=== PATIENT | male | born 1960 | race Caucasian/White ===

== ENCOUNTER → 2019-08-31 14:15 | Outpatient (CLI) | payer BC, SELFPAY ==
--- NOTE | ~2019-08-31 | XR_ITS ---
XR chest 2V DATE: 08/31/2019 14:44 INDICATION: Cough, fever, bilateral lower chest pain for 3 days TECHNIQUE: PA and lateral views COMPARISON: None FINDINGS: Normal heart size. No hilar or mediastinal enlargement. There is discoid atelectasis or s carring at the lung bases; otherwise no pulmonary infiltrate or consolidation, pulmonary vascular con gestion, pleural effusion or pneumothorax. Thoracic and lumbar scoliosis. Osteopenia. IMPRESSION: Mild discoid scarring and/or atelectasis; otherwise no active cardiopulmonary disease Reviewed, dictated and finalized at location B. NED GLASS GLAZIER HELPER IMPRESSION: Mild discoid scarring and/or atelectasis; otherwise no active cardi opulmonary disease
== END ==
PROVIDERS: PCP Family Medicine; Visit Provider Physician Assistant
DX: R05 Cough (principal); R07.9 Chest pain, unspecified; R50.9 Fever, unspecified; R91.8 Other nonspecific abnormal finding of lung field
CPT/HCPCS: 71046

== ENCOUNTER 2019-10-13 11:05 | Outpatient (CLI) | payer BC, SELFPAY ==
--- NOTE | 2019-10-13 11:23 | ECG_ITS ---
Measurements Intervals [place] Rate: 68 P: 53 SC: 196 QRS: 17 QRSD: 97 T: 41 QT: 378 QTc: 402 Interpretive Statements SINUS RHYTHM INCOMPLETE RIGHT BUNDLE BRANCH BLOCK BASELINE WANDER- II, III, AVF BORDERLINE ECG Electronically Signed On 10-13-2019 12:57:44 CDT by Fercho Joyec D.O.
== END 2019-10-13 11:06 | disposition home or self-care (01) ==
LOC: ANHIMG 11:10
PROVIDERS: PCP Family Medicine; Visit Provider Family Medicine
DX: I10 Essential (primary) hypertension (principal); I45.10 Unspecified right bundle-branch block
CPT/HCPCS: 93005

== ENCOUNTER 2019-12-07 05:32 | Outpatient (CLI) | payer BC, SELFPAY ==
[2019-12-07 18:35] LABS: SARS-CoV-2 RNA PCR Negative
== END 2019-12-07 05:33 | disposition home or self-care (01) ==
LOC: ANHCOVIDDT 05:33
PROVIDERS: PCP Family Medicine; Visit Provider Orthopaedic Surgery
DX: Z01.818 Encounter for other preprocedural examination (principal); Z11.59 Encounter for screening for other viral diseases
CPT/HCPCS: 87635; C9803; U0003

== ENCOUNTER 2019-12-09 02:18 | Day surgery (SDC) | payer BC, SELFPAY ==
[2019-10-13 10:31] VITALS: BMI 30.5
--- NOTE | 2019-12-09 06:39 | WPDANESEPPF ---
Anes - Initial Pre Proc Eval Procedure: Operation Date: 12/09/19 07:30 Proposed Procedures p Right Carpal Tunnel Release - Kenny Hamlin MD Date/Time: 12/09/19 06:39 Surgeon: Kenny Hamlin MD Pre Op Diagnosis: Right Carpal Tunnel Syndrome Patient Data Age: 59 Gender: M Height: 6 ft Weight: 102.06 kg Allergies Allergy/AdvReac Type Severity Reaction Status Date / Time No Known Allergies Allergy Verified 12/07/19 12:51 Home Medications Medication Instructions Recorded Confirmed Type fenofibrate nanocrystallized 48 mg 48 mg PO DAILY #90 tablet 09/22/19 12/06/19 Rx tablet CoQ-10 1 tablet PO DAILY 10/13/19 12/06/19 History glucosamine sulfate [Glucosamine] 500 mg PO DAILY 10/13/19 12/06/19 History zolpidem 10 mg tablet 10 mg PO HS PRN #30 tablet 10/25/19 12/06/19 Rx levothyroxine 200 mcg tablet 200 mcg PO DAILY #90 tablet 11/15/19 12/06/19 Rx lisinopril 20 mg tablet 20 mg PO DAILY #90 tablet 11/15/19 12/06/19 Rx hydrocodone 5 mg-acetaminophen 325 1 tablet PO Q6H PRN #20 tablet 12/07/19 12/07/19 Rx mg tablet ondansetron 8 mg disintegrating 8 mg PO Q6-8H PRN #10 tablet 12/07/19 12/07/19 Rx tablet Patient hx anesthesia problems: none Family hx anesthesia problems: none PMFSH Past Medical History Medical History Adult hypothyroidism Carpal tunnel syndrome, left Essential (primary) hypertension Insomnia Mixed hyperlipidemia BESS (obstructive sleep apnea) Surgical History Surgical History S/P cholecystectomy S/P hip replacement Family History Family History Other Family history of cardiovascular disease Social History Social History Smoking status: Never smoker Alcohol intake: current Substance use: never Substance use type: does not use Gender identity (if verbalized by the patient): Male Spiritual care concerns: No Anes - Eval Final PreProcedure Day of Procedure 12/09/19 06:39 Patient weight: obese Heart: regular rate and rhythm Lungs: clear to auscultation Airway: Mallampati scale class II Neurological: alert and oriented Last oral intake: >/= 8 hours ASA classification: III Emergent: no Anesthetic plan: proceed Anesthesia type and monitoring: general GIVS and standard monitoring Informed Consent: The patient's anesthetic plan and its attendant risks and benefits were discussed with the patient/family/POA. Questions were solicited and answers provided to the satisfaction of the patient/family/POA.
--- NOTE | 2019-12-09 06:52 | WPDHPUPDATE1 ---
History and Physical Update Update Date/Time: 12/09/19 06:52 History and Physical has been reviewed, including an updated exam of the patient. There are NO changes in the patient's condition. Risks, benefits, and alternatives have been discussed and questions answered. Patient agrees to proceed with procedure.
[2019-12-09] MEDS: IBUPROFEN IV 800 MG/200 ML 800 MG/200 ML BAG 400 MG IVPB (06:57)
[2019-12-09] MEDS: LACTATED RINGERS 1,000 ML 30 ML IV CONT (06:57)
[2019-12-09 07:00] VITALS: BP 140/80; PULSE 65; RESP 20; TEMP 36.6; O2SAT 99
[2019-12-09] MEDS: ceFAZolin 2 GM/D5W 50 ML 2 GM/50 ML BAG IVPB (07:25)
[2019-12-09] MEDS: LIDOCAINE HCL 2% LOCAL INJ 20 ML VIAL 10 ML INFILTRATE (07:50)
[2019-12-09 08:10] VITALS: BP 86/48; PULSE 66; RESP 20; O2SAT 95
--- NOTE | 2019-12-09 08:21 | P.OP_ITS ---
Procedure Note - Detailed Date of procedure: 12/09/19 Pre-op diagnosis: Right Carpal Tunnel Syndrome Post-op diagnosis: same Procedure performed: RT CTR Description of procedure: Preoperative Diagnosis: Right Carpal Tunnel Syndrome (G56.02) Postoperative Diagnosis: Same Procedure: Right open carpal tunnel release (31062) Surgeon: Boubacar Assist: Drophammer Operator Anesthesia: MAC, local Complications: None EBL: Minimal Operative Indications: The patient has history, exam findings, and electrodiagnostic findings consistent with carpal tunnel syndrome. Conservative treatment with bracing/ splinting, activity modifications, medication, erg onomics, injections has failed. Symptoms are daily and affect ability to use hand. The patient desires operative treatment. Procedure: After informed consent was given, the operative extremity was marked in the preoperative holding area. Intravenous antibiotics were given. The patient was taken to the operating room and underwent conscious sedation by the anesthesia team. A time-out was performed confirming patient, procedure, and operative site. Local infiltrate at the carpal tunnel was done with 0.5% marcaine. Prepping and draping was done using chloraprep skin solution with usual surgical sterile technique. Anatomic landmarks marked on skin. Hand was exsanguinated and arm tourniquet inflated to 225mmHg. Incision was made with #15 blade knife in skin crease on volar palm. Hemostasis was achieved with electrocautery. Careful dissection was carried down to the transverse carpal ligament. Retractors were placed. Ligament overlying median nerve was incised in line with skin incision using mille lacs blade. Proximal and distal release was done with metzenbaum scissors under direct visualization. Mosquito clamp was placed deep to ligament to protect nerve during release. The nerve was inspected and noted to be intact with mild flattening. Tendons had good excursion. The tourniquet was then released and pressure held. Bleeding points were coagulated with bovie cautery. The wound was thoroughly irrigated with antibiotic solution. The skin was closed with 4-0 nylon interrupted suture. A sterile dressing was applied. Good capillary refill in the fingers and thumb was noted. The patient was transported to the recovery room in stable condition. All sponge, needle, instrument counts were correct at the end of the case. Anesthesia: MAC and local Surgeon: Kenny Hamlin MD Heat Reader: 1st Heat Reader Estimated blood loss (mL): 2 Tourniquet time (min): 8 Drains: No Packing: No Pathology: none sent Complications: None Condition: stable Disposition: PACU
[2019-12-09 08:40] VITALS: BP 107/68; PULSE 66; RESP 14
[2019-12-09 09:10] VITALS: BP 110/68; PULSE 62; RESP 14
[2019-12-09 09:20] VITALS: BP 98/56; PULSE 62; RESP 14
== END 2019-12-09 09:29 | disposition home or self-care (01) ==
PROVIDERS: PCP Family Medicine; Visit Provider Orthopaedic Surgery
PROC: (CPT 64721; principal; 2019-12-09 07:30)
DX: G56.01 Carpal tunnel syndrome, right upper limb (principal); I10 Essential (primary) hypertension; E78.2 Mixed hyperlipidemia; G47.33 Obstructive sleep apnea (adult) (pediatric); E03.9 Hypothyroidism, unspecified; G47.00 Insomnia, unspecified; E66.9 Obesity, unspecified; Z68.32 Body mass index [BMI] 32.0-32.9, adult
CPT/HCPCS: 64721; J0690; J1100; J1741; J2250; J2405; J2704; J3010; J7120

== ENCOUNTER 2020-01-21 00:22 | Outpatient (CLI) | payer BC, SELFPAY ==
[2020-01-21 20:58] LABS: SARS-CoV-2 RNA PCR Negative
== END 2020-01-21 00:23 | disposition home or self-care (01) ==
LOC: ANHCOVIDDT 00:22
PROVIDERS: PCP Family Medicine; Visit Provider Orthopaedic Surgery
DX: Z01.812 Encounter for preprocedural laboratory examination (principal); Z11.59 Encounter for screening for other viral diseases
CPT/HCPCS: 87635; C9803; U0003

== ENCOUNTER 2020-01-24 00:59 | Day surgery (SDC) | payer BC, SELFPAY ==
--- NOTE | 2020-01-05 14:26 | PM.IMHP ---
H&P: HPI History of Present Illness Chief complaint: Left Carpal Tunnel Syndrome Narrative: Adam Evans is a 59 year old male Three weeks status post right carpal tunnel release. Complains of continued numbness, tingling and pain left hand and wrist. Nerve study shows previous bilateral carpal tunnel syndrome. Patient now presents for left carpal tunnel surgery. Reports no improvement with conservative treatment. Review of Systems Constitutional: Constitutional: Denies fever(s) Eyes: Eyes: Denies blurry vision ENT: Reports Normal hearing present Cardiovascular: Cardiovascular: Denies chest pain and Denies dyspnea Respiratory: Respiratory: Denies dyspnea and Denies wheezing Gastrointestinal: Gastrointestinal: Denies abdominal pain Genitourinary: Genitourinary: Denies urinary urgency Musculoskeletal: Musculoskeletal: Reports as per HPI and Denies numbness Integumentary/Breasts: Skin/Breast: Denies changing lesions and Denies sores Neurologic: Reports Normal hearing present, Denies behavioral changes, Denies confusion, Denies numbness and Denies convulsions Psychiatric: Psychiatric: Denies behavioral changes, Denies confusion and Denies hallucinations Endocrine: Endocrine: Denies heat intolerance Hematologic/Lymphatic: Hematologic/Lymphatic: Denies easy bleeding Allergic/Immunologic: Allergic/Immunologic: Denies wheezing PMFSH Past Medical History Medical History Adult hypothyroidism Carpal tunnel syndrome, left Essential (primary) hypertension Insomnia Mixed hyperlipidemia BESS (obstructive sleep apnea) Surgical History Surgical History S/P cholecystectomy S/P hip replacement Family History Family History Other Family history of cardiovascular disease Social History Social History Smoking status: Never smoker Alcohol intake: current Substance use: never Substance use type: does not use Gender identity (if verbalized by the patient): Male Spiritual care concerns: No Meds Home Medications and Allergies Home Medications Medication Instructions Recorded Confirmed Type fenofibrate nanocrystallized 48 mg 48 mg PO DAILY #90 tablet 09/22/19 12/09/19 Rx tablet CoQ-10 1 tablet PO DAILY 10/13/19 12/09/19 History glucosamine sulfate [Glucosamine] 500 mg PO DAILY 10/13/19 12/09/19 History zolpidem 10 mg tablet 10 mg PO HS PRN #30 tablet 10/25/19 12/06/19 Rx levothyroxine 200 mcg tablet 200 mcg PO DAILY #90 tablet 11/15/19 12/09/19 Rx lisinopril 20 mg tablet 20 mg PO DAILY #90 tablet 11/15/19 12/09/19 Rx hydrocodone 5 mg-acetaminophen 325 1 tablet PO Q6H PRN #20 tablet 12/07/19 12/07/19 Rx mg tablet ondansetron 8 mg disintegrating 8 mg PO Q6-8H PRN #10 tablet 12/07/19 12/07/19 Rx tablet Allergies Allergy/AdvReac Type Severity Reaction Status Date / Time No Known Allergies Allergy Verified 12/21/19 09:04 Exam Const: General: cooperative, healthy appearing, no acute distress, well developed and alert; No confusion Orientation/consciousness: No confusion HENMT: Head: normal to inspection, normocephalic and atraumatic Eyes: Conjunctivae: conjunctivae normal Sclera: sclerae normal Neck: Neck: supple and nontender Chest: Chest palpation & inspection: normal inspection of the chest Resp: Effort & Inspection: normal respiratory effort and no audible wheezes Cardio: Rate: regular rate Rhythm: regular rhythm : General: Yes deferred Skin: General skin exam: no rashes or lesions noted Neuro: General: No confusion Motor exam (neuro): Normal motor muscle tone present throughout Sensory Exam: Sensory deficit (Neuro) (decreased sensation to light touch thumb, index, middle and radial ring essence) and Upper extremity sensory exam abnormal De
[2020-01-11 16:11] VITALS: BMI 31.8
--- NOTE | 2020-01-23 16:12 | WPDANESEPP ---
Anes - Eval Pre Procedure Procedure: Operation Date: 01/24/20 07:30 Proposed Procedures p Left Carpal Tunnel Release - Kenny Hamlin MD Date/Time: 01/23/20 16:12 Pre Op Diagnosis: Left Carpal Tunnel Syndrome Patient Data Age: 59 Gender: M Height: 1.83 m Weight: 106.59 kg Allergies Allergy/AdvReac Type Severity Reaction Status Date / Time No Known Allergies Allergy Verified 01/11/20 16:04 Home Medications Medication Instructions Recorded Confirmed Type fenofibrate nanocrystallized 48 mg 48 mg PO DAILY #90 tablet 09/22/19 01/11/20 Rx tablet CoQ-10 1 tablet PO DAILY 10/13/19 01/11/20 History glucosamine sulfate [Glucosamine] 500 mg PO DAILY 10/13/19 01/11/20 History zolpidem 10 mg tablet 10 mg PO HS PRN #30 tablet 10/25/19 01/11/20 Rx levothyroxine 200 mcg tablet 200 mcg PO DAILY #90 tablet 11/15/19 01/11/20 Rx lisinopril 20 mg tablet 20 mg PO DAILY #90 tablet 11/15/19 01/11/20 Rx Patient hx anesthesia problems: none Family hx anesthesia problems: none PMFSH Past Medical History Medical History Adult hypothyroidism Arthritis Carpal tunnel syndrome, left Essential (primary) hypertension Insomnia Mixed hyperlipidemia BESS (obstructive sleep apnea) Surgical History Surgical History History of tonsillectomy and adenoidectomy S/P cholecystectomy S/P hip replacement Family History Family History Other Family history of cardiovascular disease Social History Social History Smoking status: Never smoker Alcohol intake: current Substance use: never Substance use type: does not use Gender identity (if verbalized by the patient): Male Spiritual care concerns: No Exam Day of Procedure 01/23/20 16:12
--- NOTE | 2020-01-24 06:49 | WPDANESEPPF ---
Anes - Initial Pre Proc Eval Procedure: Operation Date: 01/24/20 07:30 Proposed Procedures p Left Carpal Tunnel Release - Kenny Hamlin MD Date/Time: 01/24/20 06:49 Surgeon: Kenny Hamlin MD Pre Op Diagnosis: Left Carpal Tunnel Syndrome Patient Data Age: 59 Gender: M Height: 6 ft Weight: 106.59 kg Allergies Allergy/AdvReac Type Severity Reaction Status Date / Time No Known Allergies Allergy Verified 01/11/20 16:04 Home Medications Medication Instructions Recorded Confirmed Type fenofibrate nanocrystallized 48 mg 48 mg PO DAILY #90 tablet 09/22/19 01/11/20 Rx tablet CoQ-10 1 tablet PO DAILY 10/13/19 01/11/20 History glucosamine sulfate [Glucosamine] 500 mg PO DAILY 10/13/19 01/11/20 History zolpidem 10 mg tablet 10 mg PO HS PRN #30 tablet 10/25/19 01/11/20 Rx levothyroxine 200 mcg tablet 200 mcg PO DAILY #90 tablet 11/15/19 01/11/20 Rx lisinopril 20 mg tablet 20 mg PO DAILY #90 tablet 11/15/19 01/11/20 Rx Patient hx anesthesia problems: none Family hx anesthesia problems: none PMFSH Past Medical History Medical History Adult hypothyroidism Arthritis Carpal tunnel syndrome, left Essential (primary) hypertension Insomnia Mixed hyperlipidemia BESS (obstructive sleep apnea) Surgical History Surgical History History of tonsillectomy and adenoidectomy S/P cholecystectomy S/P hip replacement Family History Family History Other Family history of cardiovascular disease Social History Social History Smoking status: Never smoker Alcohol intake: current Substance use: never Substance use type: does not use Gender identity (if verbalized by the patient): Male Spiritual care concerns: No Anes - Eval Final PreProcedure Day of Procedure 01/24/20 06:49 Patient weight: obese Heart: regular rate and rhythm Lungs: clear to auscultation Airway: Mallampati scale class II Neurological: alert and oriented Last oral intake: >/= 8 hours ASA classification: III Emergent: no Anesthetic plan: proceed Anesthesia type and monitoring: general GIVS and standard monitoring Informed Consent: The patient's anesthetic plan and its attendant risks and benefits were discussed with the patient/family/POA. Questions were solicited and answers provided to the satisfaction of the patient/family/POA.
[2020-01-24 07:00] VITALS: BP 165/102; PULSE 64; RESP 18; TEMP 36.9; O2SAT 100
[2020-01-24] MEDS: IBUPROFEN IV 800 MG/200 ML 800 MG/200 ML BAG 400 MG IVPB (07:00)
[2020-01-24] MEDS: LACTATED RINGERS 1,000 ML 30 ML IV CONT (07:00)
--- NOTE | 2020-01-24 07:06 | WPDHPUPDATE1 ---
History and Physical Update Update Date/Time: 01/24/20 07:06 History and Physical has been reviewed, including an updated exam of the patient. There are NO changes in the patient's condition. Risks, benefits, and alternatives have been discussed and questions answered. Patient agrees to proceed with procedure. Covid test negative
[2020-01-24] MEDS: ceFAZolin 2 GM/D5W 50 ML 2 GM/50 ML BAG IVPB (07:25)
[2020-01-24] MEDS: LIDOCAINE HCL 2% LOCAL INJ 20 ML VIAL 40 ML INFILTRATE (07:55)
[2020-01-24 08:14] VITALS: BP 115/60; PULSE 65; RESP 18; O2SAT 100
--- NOTE | 2020-01-24 08:21 | P.OP_ITS ---
Procedure Note - Detailed Date of procedure: 01/24/20 Pre-op diagnosis: Left Carpal Tunnel Syndrome Post-op diagnosis: same Procedure performed: Left carpal tunnel release Description of procedure: Preoperative Diagnosis: Left Carpal Tunnel Syndrome (G56.01) Postoperative Diagnosis: Same Procedure: Left open carpal tunnel release (82050) Surgeon: Boubacar Assist: Outpatient Therapist Anesthesia: MAC, local Complications: None EBL: Minimal Operative Indications: The patient has history, exam findings, and electrodiagnostic findings consistent with carpal tunnel syndrome. Conservative treatment with bracing/ splinting, activity modifications, medication, ergonomics, injections has failed. Symptoms are daily and affect ability to use hand. The patient desires operative treatment. Procedure: After informed consent was given, the operative extremity was marked in the preoperative holding area. Intravenous antibiotics were given. The patient was taken to the operating room and underwent conscious sedation by the anesthesia team. A time-out was performed confirming patient, procedure, and operative site. Local infiltrate at the carpal tunnel was done with 0.5% marcaine. Prepping and draping was done using chloraprep skin solution with usual surgical sterile technique. Anatomic landmarks marked on skin. Hand was exsanguinated and arm tourniquet inflated to 225mmHg. Incision was made with #15 blade knife in skin crease on volar palm. Hemostasis was achieved with electrocautery. Careful dissection was carried down to the transverse carpal ligament. Retractors were placed. Ligament overlying median nerve was incised in line with skin incision using chitimacha blade. Proximal and distal release was done with metzenbaum scissors under direct visualization. Mosquito clamp was placed deep to ligament to protect nerve during release. The nerve was inspected and noted to be intact with mild flattening. The nerve was slightly more radial in the tunnel. Transverse carpal ligament noted to be thickened. Tendons had good excursion. The tourniquet was then released and pressure held. Bleeding points were coagulated with bovie cautery. The wound was thoroughly irrigated with antibiotic solution. The skin was closed with 4-0 nylon interrupted suture. A sterile dressing was applied. Good capillary refill in the fingers and thumb was noted. The patient was transported to the recovery room in stable condi tion. All sponge, needle, instrument counts were correct at the end of the case. Anesthesia: MAC Surgeon: Kenny Hamlin MD Integrated [employer] Ic Layout Designer: 1st dental assistant teacher Estimated blood loss (mL): 1 Tourniquet time (min): 11 Drains: No Packing: No Pathology: none sent Complications: None Condition: stable Disposition: PACU
[2020-01-24 08:45] VITALS: BP 131/81; PULSE 58; RESP 18
[2020-01-24 09:15] VITALS: BP 153/88; PULSE 50; RESP 16
== END 2020-01-24 09:45 | disposition home or self-care (01) ==
PROVIDERS: PCP Family Medicine; Visit Provider Orthopaedic Surgery
PROC: (CPT 64721; principal; 2020-01-24 07:30)
DX: G56.02 Carpal tunnel syndrome, left upper limb (principal); I10 Essential (primary) hypertension; E78.2 Mixed hyperlipidemia; G47.33 Obstructive sleep apnea (adult) (pediatric); E03.9 Hypothyroidism, unspecified; M19.90 Unspecified osteoarthritis, unspecified site; G47.00 Insomnia, unspecified
CPT/HCPCS: 64721; J0690; J1100; J1741; J2250; J2405; J2704; J3010; J7120

== ENCOUNTER 2020-05-30 11:09 | Outpatient (CLI) | payer BC, SELFPAY ==
[2020-05-30 11:46] LABS: Basophils Absolute Auto 0.1 K/mm3 (0.0-0.1); Basophils Percent Auto 0.8 % (0.2-1.2); Eosinophils Absolute Auto 0.3 K/mm3 (0-0.3); Eosinophils Percent Auto 2.8 % (0-4.4); Hematocrit 42.8 % (42.0-52.0); Hemoglobin 14.2 g/dL (14.0-18.0); Immature Granulocyte Absolute 0.03 K/mm3 (0.00-0.031); Immature Granulocyte Percent A 0.3 % (0-0.5); Lymphocytes Absolute Auto 2.57 K/mm3 (0.9-3.2); Lymphocytes Percent Auto 29.1 % (18.3-44.2); Mean Corpuscular HGB Conc 33.2 g/dl (32-36); Mean Corpuscular Hemoglobin 30.1 pg (26-34); Mean Corpuscular Volume 90.9 fl (80-100); Mean Platelet Volume 9.2 fl (7.4-10.4); Monocytes Absolute Auto 0.6 K/mm3 (0.1-0.6); Monocytes Percent Auto 6.6 % (2.6-8.5); Neutrophils Absolute Auto 5.3 K/mm3 (1.3-6.7); Neutrophils Percent Auto 60.4 % (45.5-73.1); Platelet Count Result 256 k/mm3 (150-375); Red Blood Count 4.71 M/mm3 (4.6-6.20); White Blood Count 8.8 K/mm3 (4.5-10.0)
[2020-05-30 12:02] LABS: Rheumatoid Factor < 8.6 IU/ML (<12)
[2020-05-30 12:04] LABS: CRP < 0.5 mg/dL (<1.0)
[2020-05-30 13:02] LABS: Erythrocyte Sedimentation Rate 5 mm/hr (0-20)
[2020-06-01 18:08] LABS: HLA B27 Negative (Negative)
[2020-06-02 09:29] LABS: Anti Cyclic Citrullinated Pept <16 Units (<20)
== END 2020-05-30 11:10 | disposition home or self-care (01) ==
PROVIDERS: PCP Family Medicine; Visit Provider Orthopaedic Surgery
DX: M06.9 Rheumatoid arthritis, unspecified (principal)
CPT/HCPCS: 36415; 85025; 85652; 86038; 86140; 86200; 86430; 86812

== ENCOUNTER → 2020-12-26 07:52 | Outpatient (CLI) | payer BC, SELFPAY ==
--- NOTE | ~2020-12-26 | MR_ITS ---
EXAMINATION: MR knee RT wo con DATE: 12/26/2020 08:31 INDICATION: Generalized right knee pain and swelling TECHNIQUE: Magnetic resonance imaging (MRI) of the right knee was performed without intravenous contr ast. Sequences included coronal PD-weighted FSE, coronal PD-weighted FS FSE, sagittal T2-weighted FS E, sagittal PD-weighted FS FSE and axial PD weighted fat saturated FSE. COMPARISON: None. FINDINGS: Medial compartment: Longitudinal horizontal tear extending to the superior articular surface near the free edge of the kobi dy of the medial meniscus. There is mild fraying along the inner free edge of the posterior horn. Par tial-thickness chondral ulceration and fissuring along the lateral half of the anterior weightbearing medial femoral condyle and along the lateral half of the anterior to central weightbearing medial fe moral condyle. There is subarticular edema centered along the medial rim of the central weightbearing medial femoral condyle. Additional partial thickness chondral ulceration along the anteromedial aspe ct of the medial tibial plateau with underlying subarticular edema. Partial-thickness chondral fissur e involving greater than 50% the cartilage thickness but without degenerative subchondral changes mor e laterally at the anterior medial tibial plateau. Lateral compartment: Complex tear of the body and posterior horn of the lateral meniscus. Deep chondral fissuring with min imal irregularity to the articular cortex but no degenerative subarticular changes at the junction of the anterior to central weightbearing lateral femoral condyle. Partial thickness chondral ulceration and fissuring without degenerative subchondral changes at the posterior lateral tibial plateau. Patellofemoral compartment: Chondral fissuring involving less than 50% the cartilage thickness at the lateral patellar facet and medial trochlea. Chondral flap tear involving approximately 50% the cartilage thickness at the medial side of the medial patellar facet. Deep chondral fissuring without degenerative subchondral changes at the caudal aspect of the trochlear groove. Ligaments and tendons: Posterior cruciate ligament is normal. The anterior cruciate ligament demonstrates a normal angle rel ative to Blumenstaat's line. It appears thickened with increased intrasubstance signal surrounding in tact appearing linear fibers with a celery stalk appearance. The medial collateral ligament and fib ular collateral ligament complex are normal. The extensor mechanism is normal. The visualized medial and lateral hamstring tendons as well as the iliotibial band are normal. Fluid: Moderate-sized right knee joint effusion with mild synovitis at the suprapatellar pouch and along the posterior margin of Hoffa's fat pad. No loose osteochondral bodies identified. Subcutaneous edema ab out the anterior, medial and lateral aspects of the knee. Osseous/other: Normal marrow signal aside from the previous noted subarticular edema at the medial tibial plateau an d medial femoral condyle. No fracture or abnormal marrow replacing process. IMPRESSION: 1. Medial and lateral meniscal tears. 2. Mild tricompartmental osteoarthritis with regions of moderate to high-grade chondromalacia in the medial compartment and moderate grade chondromalacia in the lateral and patellofemoral compartment. 3. Mucoid degeneration of the anterior cruciate ligament without discrete tear. Correlate with physic al exam to assess for degree of functional integrity. 4. Moderate-sized right knee joint effusion. Reviewed, dictated and finalized at location A.
== END ==
PROVIDERS: PCP Family Medicine; Visit Provider Orthopaedic Surgery
DX: S83.241D Other tear of medial meniscus, current injury, right knee, subsequent encounter (principal); X58.XXXD Exposure to other specified factors, subsequent encounter; M25.461 Effusion, right knee; M17.11 Unilateral primary osteoarthritis, right knee; S83.281A Other tear of lateral meniscus, current injury, right knee, initial encounter; S83.241A Other tear of medial meniscus, current injury, right knee, initial encounter
CPT/HCPCS: 73721

== ENCOUNTER → 2021-01-23 14:57 | Outpatient (REF) | payer BC, SELFPAY | LOC: ANHLAB 14:57 | PROVIDERS: Visit Provider Nurse Practitioner | DX: C44.519 Basal cell carcinoma of skin of other part of trunk (principal) | CPT/HCPCS: 88305 ==

== ENCOUNTER → 2021-04-09 07:10 | Outpatient (REF) | payer BC, SELFPAY | LOC: ANHLAB 07:10 | PROVIDERS: PCP Family Medicine; Visit Provider Nurse Practitioner | DX: C44.519 Basal cell carcinoma of skin of other part of trunk (principal) | CPT/HCPCS: 88305; 88331 ==

== ENCOUNTER → 2021-05-24 08:04 | Outpatient (CLI) | payer BC, SELFPAY ==
[2021-05-24 17:33] LABS: SARS-CoV-2 RNA PCR Positive
== END ==
PROVIDERS: Physician Assistant; PCP Family Medicine; Visit Provider Family Medicine
DX: R05.9 Cough, unspecified (principal); Z20.822 Contact with and (suspected) exposure to COVID-19
CPT/HCPCS: C9803; U0003; U0005

== ENCOUNTER → 2021-09-17 00:50 | Outpatient (CLI) | payer OTHER, SELFPAY ==
[2021-09-17 11:41] LABS: SARS-CoV-2 RNA PCR Negative
== END ==
PROVIDERS: PCP Physician Assistant; Visit Provider Orthopaedic Surgery
DX: Z01.812 Encounter for preprocedural laboratory examination (principal); Z20.822 Contact with and (suspected) exposure to COVID-19
CPT/HCPCS: C9803; U0003; U0005

== ENCOUNTER 2021-09-17 08:59 | Outpatient (CLI) | payer OTHER, SELFPAY ==
--- NOTE | 2021-09-17 09:30 | ECG_ITS ---
Measurements Intervals [place] Rate: 73 P: 49 [place]: 191 QRS: 8 QRSD: 88 T: 56 QT: 354 QTc: 391 Interpretive Statements SINUS RHYTHM BORDERLINE R WAVE PROGRESSION, ANTERIOR LEADS BASELINE ARTIFACT- I, II, III, AVR, AVL, AVF BORDERLINE ECG Electronically Signed On 09-17-2021 13:03:16 [employer]ILY [employer] by Fercho Joyce D.O.
== END 2021-09-17 09:00 | disposition home or self-care (01) ==
LOC: ANHSURGERY 09:04
PROVIDERS: PCP Family Medicine; Visit Provider Orthopaedic Surgery
DX: E78.2 Mixed hyperlipidemia (principal); I10 Essential (primary) hypertension; Z01.818 Encounter for other preprocedural examination; R94.31 Abnormal electrocardiogram [ECG] [EKG]
CPT/HCPCS: 93005

== ENCOUNTER 2021-09-20 00:13 | Day surgery (SDC) | payer OTHER, SELFPAY ==
[2021-09-12 12:29] VITALS: BMI 31.8
--- NOTE | 2021-09-12 12:39 | PC.NURSE ---
Report to the Outpatient Waiting Room, entrance under the green pavilion located off [facility], at time 6:00 on date 09/20/21. OR Time: 8:00. - You and your visitor will be asked a series of questions to screen for COVID 19 for your protection. - A mask is required within the hospital. One visitor will be allowed to accompany the patient into the hospital. Patients visitor will be instructed to remain with patient at all times or leave the building. We will allow the visitor to come back to the postoperative area when patient is ready. Preoperative COVID Testing Requirements: COVID TEST 09/17 AT 9:00 No COVID Test needed if: (proof is required; if not received patient will have Rapid Test prior to entry) - Patient has received COVID Vaccine at least 14 days prior to procedure date or - Patient has positive COVID test result within last 90 days of surgery date. COVID Test needed if above criteria is not met If not COVID vaccinated a COVID test must be conducted within 72 hours of surgery and patient is asked to isolate self from time of testing until procedure. You will go to the [facility] for your COVID testing. The [facility] site is located at the corner of [address] from [facility]. You will only be called if COVID results are positive and your surgeon may reschedule your elective surgery date. Patients may have clear liquids (water, carbonated beverages, clear teas, apple juice) until 3 hours prior to surgery (5:00) with a maximum of 20 ounces. - No food from midnight until time of surgery Take the following medications with a SIP of water the morning of surgery: AMLODIPINE, SYNTHROID Medications to discontinue per physician: N/A Date to take last dose: N/A Please no make-up, nail nicaraguan, hairspray, perfume, deodorant, or body powder the day of surgery. No jewelry (including any body piercings) or valuables the day of surgery, leave them at home. Please take a shower or bath the night before, or the morning of, surgery with an antibacterial soap. Wear comfortable, loose fitting clothing. - Jewelry must be removed prior to entering the operating room. Rings and piercings that are not removed may be cut off. - The hospital will not accept responsibility for valuables. - Please leave all valuables, including medications, at home the day of surgery. If you are going home after surgery, a licensed services delivery driver must drive you home. - NO public transportation without another adult. - We recommend that an adult stay with you for 24 hours following discharge. - We also recommend that you do not drive, make important decision, drink alcoholic beverages, or take any drugs that were not prescribed by your health care provider for at least 24 hours after your discharge time. Follow any additional instructions given to you from your surgeon. Telephone instructions given to MO LUX and asked if any additional questions and then verbalized understanding. Patient advised to call surgeon office or pre surgery nurse liaison [phone] if any additional questions.
--- NOTE | 2021-09-19 13:54 | WPDANESEPPF ---
Anes - Initial Pre Proc Eval Procedure: Operation Date: 09/20/21 08:00 Proposed Procedures p Right Knee Arthroscopy, Debridement Meniscus, Synovectomy, Chondroplasty, Proceed As Indicated - Kenny Hamlin MD Date/Time: 09/19/21 13:54 Surgeon: Kenny Hamlin MD Pre Op Diagnosis: right knee pain, medial meniscus tear, chondromala Patient Data Age: 60 Gender: M Height: 1.83 m Weight: 106.59 kg Allergies Allergy/AdvReac Type Severity Reaction Status Date / Time No Known Allergies Allergy Verified 09/20/21 05:59 Home Medications Medication Instructions Recorded Confirmed Type Synthroid 200 mcg tablet 200 mcg PO DAILY #90 tablet NS 08/03/21 09/20/21 Rx amlodipine 5 mg tablet 5 mg PO DAILY #30 tablet 08/03/21 09/20/21 Rx fenofibrate 54 mg tablet 54 mg PO DAILY #90 tablet 08/03/21 09/20/21 Rx zolpidem 10 mg tablet 10 mg PO HS PRN #30 tablet 08/03/21 09/20/21 Rx lisinopril 30 mg tablet 30 mg PO DAILY #90 tablet 09/14/21 09/20/21 Rx Patient hx anesthesia problems: none Family hx anesthesia problems: none Results Review: All pre-operative results and documents have been reviewed as part of the pre-operative evaluation. [facility] Past Medical History Medical History Acute medial meniscus tear of right knee Adult hypothyroidism Arthritis Arthritis of knee, degenerative Carpal tunnel syndrome, left Essential (primary) hypertension Insomnia Knee effusion, right Mixed hyperlipidemia BESS (obstructive sleep apnea) Patella-femoral syndrome Swelling of hand Surgical History Surgical History History of tonsillectomy and adenoidectomy S/P cholecystectomy S/P hip replacement Family History Family History Other Family history of cardiovascular disease Social History Social History Social History: Single Smoking status: Never smoker Second hand tobacco smoke exposure: No Alcohol intake: never Substance use: never Substance use type: does not use Living arrangements: alone Gender identity (if verbalized by the patient): Male Sexual Orientation (if Verbalized by the Patient): Straight or Heterosexual Spiritual care concerns: No Anes - Eval Final PreProcedure Day of Procedure 09/19/21 13:54 Patient weight: obese Heart: regular rate and rhythm Lungs: clear to auscultation Airway: Mallampati scale class II Neurological: alert and oriented Last oral intake: >/= 8 hours ASA classification: III Emergent: no Anesthetic plan: proceed Anesthesia type and monitoring: general LMA and standard monitoring Results Review: All pre-operative results and documents have been reviewed as part of the pre-operative evaluation. Informed Consent: The patient's anesthetic plan and its attendant risks and benefits were discussed with the patient/family/POA. Questions were solicited and answers provided to the satisfaction of the patient/family/POA.
--- NOTE | 2021-09-19 16:25 | PM.IMHP ---
H&P: HPI History of Present Illness Date/Time: 09/19/21 16:25 Chief Complaint: right knee pain and swelling Narrative: 60-year-old with chronic right knee pain and intermittent effusions. Unrelieved with multiple cortisone injections and aspirations, medication. Still with pain with weight-bearing. Recurrent effusions every several months. Presents for operative treatment. Review of Systems Constitutional: Constitutional: Denies fever(s) Eyes: Eyes: Denies blurry vision ENT: Reports Normal hearing present Cardiovascular: Cardiovascular: Denies chest pain and Denies dyspnea Respiratory: Respiratory: Denies dyspnea and Denies wheezing Gastrointestinal: Gastrointestinal: Denies abdominal pain Genitourinary: Genitourinary: Denies urinary urgency Musculoskeletal: Musculoskeletal: Reports as per HPI and Denies numbness Integumentary/Breasts: Skin/Breast: Denies changing lesions and Denies sores Neurologic: Reports Normal hearing present, Denies behavioral changes, Denies confusion, Denies numbness and Denies convulsions Psychiatric: Psychiatric: Denies behavioral changes, Denies confusion and Denies hallucinations Endocrine: Endocrine: Denies heat intolerance Hematologic/Lymphatic: Hematologic/Lymphatic: Denies easy bleeding Allergic/Immunologic: Allergic/Immunologic: Denies wheezing PMFSH Past Medical History Medical History Acute medial meniscus tear of right knee Adult hypothyroidism Arthritis Arthritis of knee, degenerative Carpal tunnel syndrome, left Essential (primary) hypertension Insomnia Knee effusion, right Mixed hyperlipidemia BESS (obstructive sleep apnea) Patella-femoral syndrome Swelling of hand Surgical History Surgical History History of tonsillectomy and adenoidectomy S/P cholecystectomy S/P hip replacement Family History Family History Other Family history of cardiovascular disease Social History Social History Social History: Single Smoking status: Never smoker Second hand tobacco smoke exposure: No Alcohol intake: never Substance use: never Substance use type: does not use Gender identity (if verbalized by the patient): Male Sexual Orientation (if Verbalized by the Patient): Straight or Heterosexual Spiritual care concerns: No Meds Home Medications and Allergies Home Medications Medication Instructions Recorded Confirmed Type Synthroid 200 mcg tablet 200 mcg PO DAILY #90 tablet NS 08/03/21 09/12/21 Rx amlodipine 5 mg tablet 5 mg PO DAILY #30 tablet 08/03/21 09/12/21 Rx fenofibrate 54 mg tablet 54 mg PO DAILY #90 tablet 08/03/21 09/12/21 Rx zolpidem 10 mg tablet 10 mg PO HS PRN #30 tablet 08/03/21 09/12/21 Rx lisinopril 30 mg tablet 30 mg PO DAILY #90 tablet 09/14/21 Rx Allergies Allergy/AdvReac Type Severity Reaction Status Date / Time No Known Allergies Allergy Verified 09/12/21 12:27 Exam Const: General: healthy appearing; No in distress or confusion Orientation/consciousness: oriented to person, oriented to place, oriented to time and No confusion HENMT: Head: normal to inspection, normocephalic and atraumatic Eyes: Conjunctivae: conjunctivae normal Sclera: sclerae normal Neck: Neck: supple and nontender Resp: Effort & Inspection: normal respiratory effort and no audible wheezes Cardio: Rate: regular rate Rhythm: regular rhythm Skin: General skin exam: no rashes or lesions noted Neuro: General: oriented to person, oriented to place, oriented to time and No confusion Extrem: Right upper extremity: normal to inspection Left upper extremity: normal to inspection Right lower extremity: hip/thigh Details: normal ROM; no tenderness, knee Details: tenderness (anterior and medial joint line ) Location: of
[2021-09-20] MEDS: ACETAMINOPHEN 500 MG TABLET 1000 MG PO (06:12)
[2021-09-20] MEDS: LACTATED RINGERS 1,000 ML 30 ML IV CONT (06:20)
[2021-09-20] MEDS: KETOROLAC 15 MG/ML VIAL (*BKC) IV PUSH (06:22)
[2021-09-20 07:10] VITALS: BP 149/85; PULSE 69; RESP 16; TEMP 36.6; O2SAT 99
--- NOTE | 2021-09-20 08:09 | WPDHPUPDATE1 ---
History and Physical Update Update Date/Time: 09/20/21 08:09 History and Physical has been reviewed, including an updated exam of the patient. There are NO changes in the patient's condition. Risks, benefits, and alternatives have been discussed and questions answered. Patient agrees to proceed with procedure.
[2021-09-20] MEDS: ceFAZolin 2 GM/D5W 50 ML 2 GM/50 ML BAG IVPB (08:13)
[2021-09-20] MEDS: BUPIVACAINE HCL 0.25% PF 30 ML VIAL INFILTRATE (08:39)
[2021-09-20] MEDS: BUPIVACAINE/EPINEPHRINE 0.25% 10 ML VIAL 30 ML INFILTRATE (08:39)
[2021-09-20 09:21] VITALS: BP 122/70; PULSE 74; RESP 12; TEMP 36.2; O2SAT 100
--- NOTE | 2021-09-20 09:22 | W.PM.PROC2 ---
Procedure Note - Detailed Date of Procedure 09/20/21 Pre-op Diagnosis right knee pain, medial meniscus tear, lateral meniscus tear, synovitis, chondromala Post-op Diagnosis same Procedure Performed Right knee arthroscopy with partial medial and lateral meniscectomy, synovectomy, chondroplasty Surgeon Kenny Hamlin MD Anesthesia general Indications 60-year-old gentleman with right knee pain and recurrent effusion. Difficulty with ambulatory activities. MRI demonstrates meniscus tear medial and lateral as well as significant chondromalacia. Patient has recurrent effusions consistent with synovitis. Presents now for operative treatment. Findings Right knee with complex degenerative tear of the posterior horn of the medial meniscus and lateral meniscus. ACL and PCL intact. Grade 4 chondromalacia of the central weight-bearing portion of the medial femoral condyle with grade 3 chondromalacia surrounding this. Grade 4 chondromalacia of the femoral trochlea. Grade 3 chondromalacia patella. Grade 2 chondromalacia lateral femoral condyle. Significant synovitis medial lateral and suprapatellar capsule with large medial and lateral plica and significantly hypertrophied fat pad. Description of Procedure Informed consent given by patient. Operative extremity marked in preoperative holding area. Patient received intravenous antibiotics. Patient brought to operating room and underwent general anesthetic by anesthesia team. Positioned supine on operating room table. Right leg placed into a posterior thigh leg nielsen. Foot of the table dropped to 90? and left leg padded out of the field. Time-out performed confirming patient, site of surgery and plan. Right knee prepped and draped in usual sterile surgical fashion using ChloraPrep skin solution. Standard arthroscopic portals made by using a 11 blade knife for the anterior lateral portal 1st. Capsule penetrated bluntly. Camera and inflow started. The below operative findings noted. Intra-articular visualization used to position the anterior medial portal using 22 gauge spinal needle. A 11 blade knife used for the skin and blunt penetration of the capsule. 4.7 millimeter arthroscopic shaver introduced and partial medial meniscectomy of the loose and torn portion performed. Shaver then positioned in the lateral compartment and partial lateral meniscectomy performed. Edge of meniscus completed with arthroscopic Wand. Arthroscopic Wand used to perform chondroplasty of the patellofemoral articulation and the medial femoral condyle. Shaver reintroduced and a synovectomy performed of the anterior fat pad and extensive synovium as well as medial and lateral plica. Bleeding points coagulated with Wand. Knee inspected, no loose pieces noted. 1 liter of irrigant infused and suction out. Arthroscopic cannulas removed. Skin closed with 4 nylon interrupted suture. Local anesthetic with 0.25% Marcaine. Sterile dressing applied. Patient awoken from anesthesia, extubated and taken to recovery room in stable condition. All sponge needle and instrument counts correct at the end of the case. Estimated Blood Loss 5 Drains No Packing No Pathology none sent Complications None Condition stable Disposition PACU
[2021-09-20 09:36] VITALS: BP 130/86; PULSE 65; RESP 14; O2SAT 98
[2021-09-20 09:50] VITALS: BP 137/84; PULSE 75; RESP 14; O2SAT 98
[2021-09-20 10:00] VITALS: BP 143/83; PULSE 65; RESP 16
--- NOTE | 2021-09-21 16:34 | PC.NURSE ---
patient stated during his post op call he was not offered crutches prior to discharge. I called now to offer a pair and patient states thanks but he has since borrowed a pair and all is ok
== END 2021-09-20 10:40 | disposition home or self-care (01) ==
PROVIDERS: PCP Family Medicine; Visit Provider Orthopaedic Surgery
PROC: (CPT 29870; principal; 2021-09-20 08:00)
DX: M23.321 Other meniscus derangements, posterior horn of medial meniscus, right knee (principal); M23.351 Other meniscus derangements, posterior horn of lateral meniscus, right knee; M65.861 Other synovitis and tenosynovitis, right lower leg; M94.262 Chondromalacia, left knee; I10 Essential (primary) hypertension; E78.2 Mixed hyperlipidemia; E03.9 Hypothyroidism, unspecified; G47.33 Obstructive sleep apnea (adult) (pediatric); E66.9 Obesity, unspecified; Z68.33 Body mass index [BMI] 33.0-33.9, adult
CPT/HCPCS: 29880; 93005; A9270; C9803; J0690; J1100; J1170; J1885; J2250; J2405; J2704; J3010; J7120; U0003; U0005

== ENCOUNTER → 2021-11-06 13:53 | Outpatient (REF) | payer OTHER, SELFPAY | LOC: ANHLAB 13:53 | PROVIDERS: PCP Family Medicine; Visit Provider Nurse Practitioner | DX: D49.2 Neoplasm of unspecified behavior of bone, soft tissue, and skin (principal) | CPT/HCPCS: 88305; 88342 ==

== ENCOUNTER 2022-06-11 13:00 | Outpatient (NON) | payer OTHER, SELFPAY | END 2022-06-11 13:01 | disposition home or self-care (01) | LOC: ANHLAB 06-12 10:17 | PROVIDERS: PCP Family Medicine; Visit Provider Nurse Practitioner | DX: C44.319 Basal cell carcinoma of skin of other parts of face (principal) | CPT/HCPCS: 88305 ==

== ENCOUNTER 2022-07-15 14:09 | Outpatient (NON) | payer OTHER, SELFPAY | END 2022-07-15 14:10 | disposition home or self-care (01) | LOC: ANHLAB 14:09 | PROVIDERS: PCP Family Medicine; Visit Provider Nurse Practitioner | DX: C44.91 Basal cell carcinoma of skin, unspecified (principal) | CPT/HCPCS: 88305; 88331 ==

== ENCOUNTER 2022-12-10 08:00 | Outpatient (NON) | payer OTHER, SELFPAY | END 2022-12-10 08:01 | disposition home or self-care (01) | PROVIDERS: PCP Family Medicine; Visit Provider Nurse Practitioner | DX: C44.622 Squamous cell carcinoma of skin of right upper limb, including shoulder (principal); C44.519 Basal cell carcinoma of skin of other part of trunk; C44.629 Squamous cell carcinoma of skin of left upper limb, including shoulder | CPT/HCPCS: 88305 ==

== ENCOUNTER 2023-01-06 15:05 | Outpatient (NON) | payer OTHER, SELFPAY | END 2023-01-06 15:06 | disposition home or self-care (01) | LOC: ANHLAB 01-07 15:08 | PROVIDERS: PCP Family Medicine; Visit Provider Nurse Practitioner | DX: C44.529 Squamous cell carcinoma of skin of other part of trunk (principal); C44.622 Squamous cell carcinoma of skin of right upper limb, including shoulder | CPT/HCPCS: 88305; 88331 ==

== ENCOUNTER 2023-01-13 00:45 | Day surgery (SDC) | payer OTHER, SELFPAY ==
[2023-01-02 14:09] VITALS: BMI 31.1
--- NOTE | 2023-01-10 15:26 | P.HP_ITS ---
History of Present Illness History of Present Illness Consent: Risks, benefits, and alternatives have been discussed and questions answered. Patient agrees to proceed with procedure. Chief complaint: neoplasm screening Narrative: Adam Evans is a 62 year old male referred for colon cancer screening. Review of Systems Review of Systems: All systems reviewed & are unremarkable except as noted in HPI and below PMFSH Past Medical History Medical History Acute medial meniscus tear of right knee Adult hypothyroidism Arthritis Arthritis of knee, degenerative Carpal tunnel syndrome, left Encounter for postoperative care Essential (primary) hypertension Insomnia Knee effusion, right Mixed hyperlipidemia BESS (obstructive sleep apnea) Patella-femoral syndrome Plantar fasciitis of right foot Rupture of left proximal biceps tendon Swelling of hand Tendonitis of left rotator cuff Surgical History Surgical History History of arthroplasty of right knee 2021 History of carpal tunnel surgery History of tonsillectomy and adenoidectomy S/P cholecystectomy S/P hip replacement Family History Family History Other Family history of cardiovascular disease Social History Social History Social History: Single Smoking status: Never smoker Second hand tobacco smoke exposure: No Alcohol intake: never Substance use: never Substance use type: does not use Living arrangements: with family Occupation/Education: occupation 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 [employer] Gender identity (if verbalized by the patient): Male Sexual Orientation (if Verbalized by the Patient): Straight or Heterosexual Spiritual care concerns: No Meds Home Medications and Allergies Home Medications Medication Instructions Recorded Confirmed Type Synthroid 200 mcg tablet 200 mcg PO DAILY #90 tabs 09/13/22 01/13/23 Rx (levothyroxine) metformin 500 mg tablet,extended 1,000 mg PO DAILY #180 tabs 09/24/22 01/13/23 Rx release 24 hr lisinopril 30 mg tablet 30 mg PO DAILY #90 tabs 09/30/22 01/13/23 Rx amlodipine 5 mg tablet 5 mg PO DAILY #90 tabs 10/18/22 01/13/23 Rx zolpidem 10 mg tablet (Ambien) 10 mg PO HS PRN Insomnia #30 tabs 10/22/22 01/13/23 Rx fenofibrate 54 mg tablet 54 mg PO DAILY #90 tabs 10/30/22 01/13/23 Rx Allergies Allergy/AdvReac Type Severity Reaction Status Date / Time No Known Allergies Allergy Verified 01/13/23 06:43 Exam Resp: Auscultation: clear to auscultation bilaterally Cardio: Rate: regular rate Rhythm: regular rhythm GI: GI Palp: Yes Soft to palpation and No Tenderness to palpation present (GI) Assessment and Plan Assessment and plan (1) Colon cancer screening: Code(s): Z12.11 - Encounter for screening for malignant neoplasm of colon Status: Acute Assessment and Plan: Colonoscopy with possible biopsy or polypectomy or cautery or injection of substances.
[2023-01-13 06:43] LABS: Glucose Point of Care 109 mg/dl (65-105)
[2023-01-13 06:45] VITALS: BP 136/76; PULSE 76; RESP 20; TEMP 36.1; O2SAT 98
[2023-01-13] MEDS: LACTATED RINGERS 1,000 ML 150 ML IV CONT (06:46)
--- NOTE | 2023-01-13 07:30 | WPDANESEPPF ---
Anes - Initial Pre Proc Eval Procedure: Operation Date: 01/13/23 08:00 Proposed Procedures p Screening Colonoscopy - Crut Claire MD Date/Time: 01/13/23 07:30 Surgeon: Curt Claire MD Pre Op Diagnosis: neoplasm screening Patient Data Age: 62 Gender: M Height: 1.83 m Weight: 103.2 kg Last Vital Signs Temp 97 F L 01/13/23 06:45 Pulse 76 01/13/23 06:45 Resp 20 01/13/23 06:45 BP 136/76 01/13/23 06:45 Pulse Ox 98 01/13/23 06:45 O2 Del Method Room Air 01/13/23 06:45 Allergies Allergy/AdvReac Type Severity Reaction Status Date / Time No Known Allergies Allergy Verified 01/13/23 06:43 Home Medications Medication Instructions Recorded Confirmed Type Synthroid 200 mcg tablet 200 mcg PO DAILY #90 tabs 09/13/22 01/13/23 Rx (levothyroxine) metformin 500 mg tablet,extended 1,000 mg PO DAILY #180 tabs 09/24/22 01/13/23 Rx release 24 hr lisinopril 30 mg tablet 30 mg PO DAILY #90 tabs 09/30/22 01/13/23 Rx amlodipine 5 mg tablet 5 mg PO DAILY #90 tabs 10/18/22 01/13/23 Rx zolpidem 10 mg tablet (Ambien) 10 mg PO HS PRN Insomnia #30 tabs 10/22/22 01/13/23 Rx fenofibrate 54 mg tablet 54 mg PO DAILY #90 tabs 10/30/22 01/13/23 Rx Laboratory Tests 01/13/23 06:41 POC Capillary Glucose 109 H mg/dl (65-105) Patient hx anesthesia problems: none Family hx anesthesia problems: none Results Review: All pre-operative results and documents have been reviewed as part of the pre-operative evaluation. [facility] Past Medical History Medical History Acute medial meniscus tear of right knee Adult hypothyroidism Arthritis Arthritis of knee, degenerative Carpal tunnel syndrome, left Encounter for postoperative care Essential (primary) hypertension Insomnia Knee effusion, right Mixed hyperlipidemia BESS (obstructive sleep apnea) Patella-femoral syndrome Plantar fasciitis of right foot Rupture of left proximal biceps tendon Swelling of hand Tendonitis of left rotator cuff Surgical History Surgical History History of arthroplasty of right knee 2021 History of carpal tunnel surgery History of tonsillectomy and adenoidectomy S/P cholecystectomy S/P hip replacement Family History Family History Other Family history of cardiovascular disease Social History Social History Social History: Single Smoking status: Never smoker Second hand tobacco smoke exposure: No Alcohol intake: never Substance use: never Substance use type: does not use Living arrangements: with family Occupation/Education: occupation 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[employer] Gender identity (if verbalized by the patient): Male Sexual Orientation (if Verbalized by the Patient): Straight or Heterosexual Spiritual care concerns: No Anes - Eval Final PreProcedure Day of Procedure 01/13/23 07:30 Patient weight: obese Heart: regular rate and rhythm Lungs: clear to auscultation Airway: Mallampati scale class II Neurological: alert and oriented Last oral intake: >/= 8 hours ASA classification: III Emergent: no Anesthetic plan: proceed Anesthesia type and monitoring: general GIVS and standard monitoring Results Review: All pre-operative results and documents have been reviewed as part of the pre-operative evaluation. Informed Consent: The patient's anesthetic plan and its attendant risks and benefits were discussed with the patient/family/POA. Questions were solicited and answers provided to the satisfaction of the patient/family/POA.
[2023-01-13 08:18] VITALS: BP 107/68; PULSE 64; RESP 18; O2SAT 96
[2023-01-13 08:28] VITALS: BP 104/63; PULSE 78; RESP 16; O2SAT 97
[2023-01-13 08:38] VITALS: BP 107/62; PULSE 77; RESP 18; O2SAT 97
== END 2023-01-13 08:46 | disposition home or self-care (01) ==
PROVIDERS: PCP Family Medicine; Visit Provider Internal Medicine Gastroenterology
PROC: 0DJD8ZZ Inspection of Lower Intestinal Tract, Via Natural or Artificial Opening Endoscopic (ICD-10-PCS; CPT 45378; principal; 2023-01-13 08:00)
DX: Z12.11 Encounter for screening for malignant neoplasm of colon (principal); K64.8 Other hemorrhoids; E03.9 Hypothyroidism, unspecified; I10 Essential (primary) hypertension; E78.2 Mixed hyperlipidemia; G47.33 Obstructive sleep apnea (adult) (pediatric); Z79.84 Long term (current) use of oral hypoglycemic drugs
CPT/HCPCS: 45378; 82948; J2704; J7120

== ENCOUNTER → 2023-04-29 07:03 | Outpatient (CLI) | payer OTHER, SELFPAY ==
--- NOTE | ~2023-04-29 | MR_ITS ---
MRI of the left shoulder Technique: Axial proton-density fat-sat images, coronal proton density fat-sat and T2 fat-sat images, and sagittal T1-weighted and T2 fat-sat images were acquired. Clinical History: Pain Findings: There is advanced AC joint degenerative change. Coracoclavicular, coracoacromial, coracohum eral ligaments probably remain intact. There are complete, full-thickness tears involving the entirety of the supraspinatus and infraspinatu s tendons, which are retracted to the level of glenoid. Fluid-filled gap measures 5.5 x 3.9 cm in ext ent. Subscapularis tendon is intact, with moderate tendinosis. There is probable complete rupture of the proximal biceps tendon which is retracted into the bicipital groove with frayed appearance of the retracted tendon edge. No definite labral tear identified. There is mild chondromalacia of the humeral head. Inferior glenohumeral ligament is intact. There is small to moderate glenohumeral joint effusion passing through the rotator cuff defect into the subacr omial/subdeltoid bursa. There is probable mild edema and early atrophic change of the supraspinatus a nd infraspinatus muscle bellies. Impression: Complete, full-thickness tears of the supraspinatus and infraspinatus tendons, as detailed above. Pro bable associated mild muscle belly edema and early atrophic changes of the associated muscle bellies. Probable complete rupture of the proximal biceps tendon with retraction to the bicipital groove. Severe AC joint degenerative change. Reviewed, dictated and finalized at [facility]. Impression: Complete, full-thickness tears of the supraspinatus and infraspinatus tendons, as detailed above. Probable associated mild muscle belly edema and early atroph ic changes of the associated muscle bellies. Probable complete rupture of the proximal biceps tendon with retraction to the bicipital groove. Severe AC joint degenerative change.
== END ==
PROVIDERS: PCP Orthopaedic Surgery; Visit Provider Orthopaedic Surgery
DX: M75.82 Other shoulder lesions, left shoulder (principal); M75.122 Complete rotator cuff tear or rupture of left shoulder, not specified as traumatic
CPT/HCPCS: 73221

== ENCOUNTER 2023-06-10 08:00 | Outpatient (NON) | payer OTHER, SELFPAY | END 2023-06-10 08:01 | disposition home or self-care (01) | LOC: ANHLAB 06-11 14:29 | PROVIDERS: PCP Family Medicine; Visit Provider Nurse Practitioner | DX: C44.712 Basal cell carcinoma of skin of right lower limb, including hip (principal); C44.519 Basal cell carcinoma of skin of other part of trunk | CPT/HCPCS: 88305 ==

== ENCOUNTER 2023-07-07 15:03 | Outpatient (NON) | payer OTHER, SELFPAY | END 2023-07-07 15:04 | disposition home or self-care (01) | LOC: ANHLAB 15:03 | PROVIDERS: PCP Family Medicine; Visit Provider Nurse Practitioner | DX: C44.91 Basal cell carcinoma of skin, unspecified (principal) | CPT/HCPCS: 88305; 88331 ==